=== PATIENT | male | born 1945 | race Caucasian/White ===

== ENCOUNTER → 2021-07-02 | Outpatient (CLI) | payer MEDICARE | LOC: LAB SHORT 12:32 → LAB 12:32 | DX: D48.5 Neoplasm of uncertain behavior of skin (principal); D03.4 Melanoma in situ of scalp and neck | CPT/HCPCS: 88305 ==

== ENCOUNTER → 2022-02-18 | Outpatient (CLI) | payer MEDICARE | END | disposition home or self-care (01) | LOC: LAB 10:54 → LAB SHORT 10:54 | DX: I48.91 Unspecified atrial fibrillation (principal) | CPT/HCPCS: 36416; 85610 ==